=== PATIENT | male | born 1955 | race Asian ===

== ENCOUNTER 2021-05-02 12:43 | Day surgery (SDC) | payer BC ==
[2021-05-02] VITALS (9 sets, daily range): BP systolic 132–158; BP diastolic 60–85; PULSE 59–75; TEMP 98.4–98.8
[~2021-05-02] VITALS: Ht 172.7 cm; Wt 72.8 kg
[~2021-05-02 12:43] MED LIST: NO HOME MEDICATIONS
[2021-05-02] MEDS ORDERED: NORCO 325 MG-51 TAB PO (17:25)
--- NOTE | 2021-05-02 20:20 | NUR ---
175 Report received from JULIA Pro, in PACU. 1804 Transfer pt from PACU to [place] [id number] via cart and this RN assist. Monitors on and alarms set. Call light within reach. Pt's brought from waiting room. Pt requests water and warm blankets. Pt states pain at 8-9 out of 10. 1814 Warm blankets brought and pt taking water well. 1825 Fentanyl 50 mcg given IV. 1844 Pt states his pain is now at a 7 out of 10. Pt denies nausea. 1849 Pt ambulates to restroom with RN assist without complications. Pt voids, and returns to room with RN assist. Pt desires to "rest a bit." 1934 Left abdominal bandage has about 2 cm square area of red drainage. Bandage removed in sterile fashion. Bandage soaked on pad with red drainage. Some red drainage on gown and blanket. Observe incision site for 1 minute, and no oozing present. Place new bandage in sterile fashion. Call Dr. Tanner and inform him of situation. He states that he is fine with pt discharging home. Pt currently rating pain at 5 out of 10. 1999 Discharge instructions given to pt and . All questions answered to their satisfaction. Additional scrotal support provided as well as bandaids and an absorbant pad for sleeping and catching any drainage. Detailed instructions given to pt and in regard to drainage, what to expect, and when to call Dr. Tanner's office. Pt and also understand that they need to call Dr. Tanner's office tomorrow to set up a 2-week follow-up appt. 2019 Pt transferred out of hospital via wheelchair and this RN to private vehicle driven by .
== END 2021-05-02 20:20 | disposition home or self-care (01) ==
LOC: SDCO 12:43
DX: K40.20 Bilateral inguinal hernia, without obstruction or gangrene, not specified as recurrent (principal); E78.5 Hyperlipidemia, unspecified; J45.909 Unspecified asthma, uncomplicated; Z85.46 Personal history of malignant neoplasm of prostate; Z82.49 Family history of ischemic heart disease and other diseases of the circulatory system
CPT/HCPCS: C1781; J0330; J0690; J1100; J1885; J2405; J2704; J3010; J7120